=== PATIENT | female | born 1955 | race Caucasian/White ===

== ENCOUNTER 2020-09-15 12:07 | Emergency (ER) | payer SELFPAY ==
[~2020-09-15] VITALS: Ht 160 cm; Wt 97.5 kg
[2020-09-15 12:15] VITALS: BP 200/86
[2020-09-15] MEDS: KETOROLAC 30 MG/ML VIAL IVP ONE (13:26)
[2020-09-15] MEDS: PROPOFOL 200 MG/20 ML VIAL IV ONE (15:23)
[2020-09-15] MEDS ORDERED: IBUP-2218 PO (15:24)
[2020-09-15 15:41] VITALS: BP 180/93
== END 2020-09-15 15:38 | disposition home or self-care (01) ==
LOC: MED 12:07
DX: S52.502A Unspecified fracture of the lower end of left radius, initial encounter for closed fracture (principal); S52.615A Nondisplaced fracture of left ulna styloid process, initial encounter for closed fracture; Z79.1 Long term (current) use of non-steroidal anti-inflammatories (NSAID); W01.0XXA Fall on same level from slipping, tripping and stumbling without subsequent striking against object, initial encounter; Y92.009 Unspecified place in unspecified non-institutional (private) residence as the place of occurrence of the external cause; Y93.H2 Activity, gardening and landscaping; Y99.8 Other external cause status
CPT/HCPCS: 25605; 73080; 73100; 73110; 96374; 99284; J1885; J2704